=== PATIENT | female | born 1965 | race Caucasian/White ===

== ENCOUNTER 2025-04-24 09:59 | Outpatient (CLI) | payer BC, SELFPAY ==
--- NOTE | ~2025-04-24 | MMUS_ITS ---
EXAMINATION: MM diagnostic farrah RT w lynnette, US breast RT complete HISTORY: Follow-up right breast asymmetries TECHNIQUE: Additional 3-D tomosynthesis images of the right breast were performed and synthetic 2-D i mages were generated. CAD analysis was submitted and interpreted. High resolution complete right tani st ultrasound was performed. COMPARISON: Comparison to multiple prior studies sequentially, with oldest reviewed study dated 03/23. BREAST PARENCHYMAL COMPOSITION: Not dense: There are scattered areas of fibroglandular density. FINDINGS: MAMMOGRAPHIC FINDINGS: There is an obscured mass in the upper outer quadrant of the right breast, anterior third. No suspici ous calcifications or architectural distortion are identified in the right breast. There are benign c alcifications. ULTRASOUND: Limited right breast ultrasound: At 9:00, 2 cm from the nipple there are 2 adjacent cysts, largest me asuring 6 mm. At 9:00, 2 cm from the nipple there is an 8 mm cyst corresponding to the mammographic f inding. No suspicious sonographic abnormalities to suggest malignancy. IMPRESSION: 1. No evidence for malignancy in the right breast. Benign findings. 2. Routine yearly screening mammogram and regular clinical breast examination are recommended. BI-RADS Category 2: Benign finding(s). Reviewed, dictated and finalized at location A. IMPRESSION: 1. No evidence for malignancy in the right breast. Benign findings. 2. Routine yearly screening mammogram and regular clinical breast examination a re recommended. BI-RADS Category 2: Benign finding(s).
--- OUTSIDE RECORDS SUMMARY | 2025-04-24 10:16 | XMS_ITS | Clinical Summary ---
Author Organization [facility] [place] Address [address] [place] [address] Phone Care Team Providers Care Test Engineering Manager Name Role Phone Unavailable Primary Care Provider Unavailabl e Social History Tobacco Use Types Packs/Day Years Used Date Smoking Tobacco: Never Assessed Comments Unknown Sex and Gender Information Value Date Recorded Sex Assigned at Not on file Legal Sex Female 11:17 AM CDT Gender Identity Not on file Sexual Orientation Not on file Plan of Treatment Health Maintenance Due Date Last Done Comments DTAP/TDAP/TD VACCINES (1 - Tdap) 1982 HPV/Cotest (21-29) 1984 CERVICAL CANCER SCREENING 1993 HPV/Cotest (30-65) 1993 PAP SMEAR 1993 BREAST CANCER SCREENING 2003 COLORECTAL SCREENING 2008 Colorectal Cancer Screening 2008 FIT-DNA Q 3 years 2008 FIT/FOBT Q 1 year 2008 Flex Sig/CT Colonography Q 5 years 2008 ZOSTER VACCINE (1 of 2) 2013 INFLUENZA VACCINE (#1) 2025 RSV VACCINE (60+ or ) (1 - 1-dose 75+ series) 2038
--- OUTSIDE RECORDS SUMMARY | 2025-04-24 10:17 | XMS_ITS | Clinical Summary ---
Author Organization [facility] Address [address] [place] [address] Care Team Providers Care Die Cut Operator Name Role Phone Bettye Garcia MD Primary Care Provider Allergies No known active allergies Medications valACYclovir (VALTREX) 1 gram tablet TAKE 2 TABLETS BY MOUTH 2 TIMES DAILY NEEDED (PER OUTBREAK OF COLD SORE). 05/09/2023 Active Active Problems Problem Noted Date Diagnosed Date Thyroid nodule 07/26/2022 Assessment & Plan (02/12/2025 10:54 AM CDT): Reviewed neck US with patient today Nodule remain stable and slightly smaller in size Previously benign and no c/w thyroid tissue Advised monitoring as it remains stable Assessment & Plan (08/15/2023 3:05 PM ARTIFICIAL INTELLIGENCE SPECIALIST): Reviewed neck US with patient today Nodule remain stable Previously benign and no c/w thyroid tissue Advised monitoring as it remains stable Diverticulitis of sigmoid colon 04/05/2022 Assessment & Plan (04/05/2022 2:15 PM CDT): Asymptomatic now. Schedule colonoscopy for screening and evaluation. Follow up as needed otherwise. Diverticulitis of intestine w/o perforation or abscess w/o bleeding 04/01/2022 Overview (04/01/2022): Added automatically from request for surgery [id number] Assessment & Plan (04/04/2022 10:19 AM CDT): Asymptomatic now. Schedule colonoscopy for screening and evaluation. Follow up as needed otherwise. 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 0 04/05/2019 Acute pain of left knee 03/30/2019 Injury of left knee 03/30/2019 Effusion of left knee 03/30/2019 Carpal tunnel syndrome 09/27/2017 Lateral epicondylitis 09/22/2017 Arthralgia of elbow 08/08/2017 Over weight 10/18/2016 Vitamin D deficiency 10/18/2016 Assessment & Plan (02/12/2025 10:55 AM CDT): Continue on D supplements Sinusitis 11/20/2014 Overview (12/17/2016): Sinusitis Encounters Date Type Department Care Team Description 02/12/2025 10:40 AM CDT Office Visit [facility] Endocrinology Metabolism and Lipid [address], [address] [place] [address] Drew Carbajal MD Thyroid nodule (Primary Dx); Vitamin D deficiency 02/12/2025 8:55 AM CDT - 02/12/2025 11:59 PM CDT Hospital Encounter [facility] [address] [place] [id number] Thyroid nodule Discharge Disposition: Discharge to home or self care from Last 3 Months Surgical History Surgery Date Site/Laterality Comments ELBOW SURGERY 09/12/2017 - 09/11/2018 Left tendon repair CARPAL TUNNEL RELEASE 09/12/2017 - 09/11/2018 Left SECTION 09/12/1988 - 09/11/1989 TUBAL LIGATION 09/12/1995 - 09/11/1996 Bilateral COLONOSCOPY 10 years ago COLONOSCOPY 05/28/2022 FLUORO GUIDED INJECTION SHOULDER LEFT 03/18/2023 Left Medical History Medical History Date Comments MRSA (methicillin resistant Staphylococcus aureus) 2006 axilla-->treated --> resolve d MRSA (methicillin resistant staph aureus) culture positive 2 negative swabs in care everywhere-->09/22/2017 & 09/23/2017 Arthritis knee Post-menopausal 2018 Family History Medical History Relation Name Comments Stroke Father Family history of cerebrovascular accident (CVA) - (Added by TW Conv) Breast cancer Mother Cancer, breast ; Cancer Mother Family history of malignant neoplasm - (Added by TW Conv) Leukemia Mother Leukemia; Heart disease Other Family history of Heart disease; Relation Name Status Comments Father Mother Other Social History Tobacco Use Types Packs/Day Years Used Date Smoking Tobacco: Never Smokeless Tobacco: Never Tobacco Cessation:Counseling Given: Not Answered Alcohol Use Standard Drinks/Week Comments Yes 1 (1 standard drink = 0.6 oz pur e alcohol) Personal Safety Answer Date Recorded Have you ever been in or are you currently in a harmful physical or emotional relationship or is someone making you feel afraid or unsafe? Denies 03/18/2023 Comments No Sex and Gender Information Value Date Recorded Sex Assigned at Not on file Legal Sex Female 3:01 AM ARTIFICIAL INTELLIGENCE SPECIALIST Gender Identity Not on file Sexual Orientation Not on file Obstetrics History Last Filed Vital Signs Vital Sign Reading Time Taken Comments Blood Pressure 155/81 02/12/2025 10:05 AM CDT Pulse 78 02/12/2025 10:05 AM CDT Temperature 36.4 C (97.6 F) 02/12/2025 10:05 AM CDT Respiratory Rate 17 02/12/2025 10:05 AM CDT Oxygen Saturation 98% 02/12/2025 10:05 AM CDT Inhaled Oxygen Concentration - - Weight 73.8 kg (162 lb 9.6 oz) 02/12/2025 10:05 AM CDT Height 170.2 cm (5' 7.01) 02/12/2025 10:05 AM C DT Body Mass Index 25.46 02/12/2025 10:05 AM CDT Plan of Treatment Health Maintenance Due Date Last Done Comments Cervical Cancer Screening 1965 Depression Screening 1965 Hepatitis C Screening 1965 DTaP/Tdap/Td Vaccine (1 - Tdap) 1974 Hepatitis B Screening 1981 Regular Well Visit/Exam 18-64 1981 Covid-19 Vaccine (3 - 2023- season) 2024 10/19/2021, 12/17/2020 Breast Cancer Screening-Mammogram 03/23/2025 03/23/2024, 03/23/2024 Influenza Vaccine (#1) 2025 9, 10/04/2018 Colon Cancer Screening-Colonoscopy 05/28/2032 05/28/2022, 12/14/2013 Zoster Vaccine Completed 09/24/2020, 07/19/2020 Colon Cancer Screening-CT Colonography Discontinued 05/28/2022, 12/14/2013 Colon Cancer Screening-DNA Stool Discontinued 05/28/2022, 12/14/2013 Colon Cancer Screening-FIT Discontinued 05/28, 12/14/2013 Colon Cancer Screening-Sigmoidoscopy Discontinued 05/28/2022, 12/14/2013 Pneumococcal vaccine <65 Aged Out No longer eligible based on patient's age to complete this topic Procedures Procedure Name Priority Date/Time Associated Diagnosis Comments US SOFT TISSUE HEAD NECK Schedule Routine, Read Routine (OP Routine) 02/12/2025 9:51 AM CDT Thyroid nodule COLONOSCOPY 05/28/2022 9:04 AM CDT from Last 3 Months or Most Recently Relevant to Health Maintenance Results * US Head Neck Soft Tissue (02/12/2025 9:51 AM CDT) Anatomical Region Laterality Modality Head and Neck N/A Ultrasound 02/12/2025 9:50 AM CDT Impressions 02/12/2025 9:50 AM CDT 1. Slight interval decrease a of the size of the previously biopsied 0.9 cm TR5 nodule in the right mid to lower thyroid lobe, possibly due to involution of a cystic component of the nodule. 2. No new suspicious thyroid nodule requiring follow-up imaging or fine-needle aspiration by ACR TI-RADS guidelines. ACR TI-RADS recommendations FNA should only be recommended on a maximum of 2 nodules. A recommendation for follow-up should only be provided for a maximum of 4 nodules. TR5 (>=7 points) (risk of malignancy > 20%) >=1 cm: FNA 0.5-0.9 cm: follow-up US every year for 5 years <0.5 cm: no further evaluation TR4 (4-6 points) (risk of malignancy 5-20%) >=1.5 cm: FNA 1-1.4 cm: follow-up US in 1, 2, 3, and 5 years <1.0 cm: no further evaluation TR3 (3 points) (risk of malignancy 2-5%) >=2.5 cm: FNA 1.5-2.4 cm: follow-up US in 1, 3, and 5 years <1.5 cm: no further evaluation TR2 (2 points) and TR1 (0 points) (risk of malignancy < 2%) No FNA or follow-up US Electronically signed by: Rober Gibson M.D. Narrative 02/12/2025 9:50 AM CDT EXAMINATION: THYROID SONOGRAM HISTORY: 59-year-old female with thyroid nodule. Prior Biopsy: Yes, prior biopsy in September 2022 demonstrated squamous lined cyst. Patient Risk Factors: None Prior Ultrasound: Yes, prior ultrasound in August 2023. FINDINGS: The thyroid is normal in size. Size right lobe: 5.1 cm craniocaudal, 1.8 cm transverse, 1.3 cm AP. Size left lobe: 5.1 cm craniocaudal, 1.6 cm transverse, 1.2 cm AP. Size isthmus: 0.2 cm AP. Nodule 1: Unchanged spongiform nodule in the right upper thyroid gland, which requires no further follow-up by ACR TI-RADS guidelines. Nodule 2: Location: Right mid to lower Size: 0.7 cm craniocaudal x 0.7 cm transverse x 0.9 cm AP (previously 0.9 cm craniocaudal x 1.0 cm transverse x 1.0 cm AP) Maximum Size: 0.9 cm Composition: Solid/almost completely solid (2) Echogenicity: Hypoechoic (2) Shape: Taller than wide (3) Margins: Smooth (0) Echogenic foci: Punctate echogenic foci (3) Additional Echogenic foci 1: Large comet-tail artifacts (0) ACR TI-RADS total points: 10 ACR TI-RADS risk category: TR5 (7 or more points) Follow-up details: Prior biopsy: Yes, previously biopsied in September 2022 with cytology demonstrating a squamous lined cyst (differential diagnosis provided in the report includes thyroglossal duct cyst, keratinaceous inclusion cysts, squamous metaplasia of a thyroid neoplasm, or possibly branchial cleft cyst). Significant change in size (>/= 20% in two dimensions and minimal increase of 2 mm): Yes, mildly decreased in size compared to the prior examination, possibly due to involution of a cystic component of the lesion. Change in features: No. Change in ACR TI-RADS risk category: No. Multiple additional mixed solid and cystic, solid, or spongiform nodules measuring less than or equal to 5 mm in size, now which require follow-up imaging or fine-needle aspiration by ACR TI RADS guidelines. Procedure Note Rober Gibson MD - 02/12/2025 EXAMINATION: THYROID SONOGRAM HISTORY: 59-year-old female with thyroid nodule. Prior Biopsy: Yes, prior biopsy in September 2022 demonstrated squamous lined cyst. Patient Risk Factors: None Prior Ultrasound: Yes, prior ultrasound in August 2023. FINDINGS: The thyroid is normal in size. Size right lobe: 5.1 cm craniocaudal, 1.8 cm transverse, 1.3 cm AP. Size left lobe: 5.1 cm craniocaudal, 1.6 cm transverse, 1.2 cm AP. Size isthmus: 0.2 cm AP. Nodule 1: Unchanged spongiform nodule in the right upper thyroid gland, which requires no further follow-up by ACR TI-RADS guidelines. Nodule 2: Location: Right mid to lower Size: 0.7 cm craniocaudal x 0.7 cm transverse x 0.9 cm AP (previously 0.9 cm craniocaudal x 1.0 cm transverse x 1.0 cm AP) Maximum Size: 0.9 cm Composition: Solid/almost completely solid (2) Echogenicity: Hypoechoic (2) Shape: Taller than wide (3) Margins: Smooth (0) Echogenic foci: Punctate echogenic foci (3) Additional Echogenic foci 1: Large comet-tail artifacts (0) ACR TI-RADS total points: 10 ACR TI-RADS risk category: TR5 (7 or more points) Follow-up details: Prior biopsy: Yes, previously biopsied in September 2022 with cytology demonstrating a squamous lined cyst (differential diagnosis provided in the report includes thyroglossal duct cyst, keratinaceous inclusion cysts, squamous metaplasia of a thyroid neoplasm, or possibly branchial cleft cyst). Significant change in size (>/= 20% in two dimensions and minimal increase of 2 mm): Yes, mildly decreased in size compared to the prior examination, possibly due to involution of a cystic component of the lesion. Change in features: No. Change in ACR TI-RADS risk category: No. Multiple additional mixed solid and cystic, solid, or spongiform nodules measuring less than or equal to 5 mm in size, now which require follow-up imaging or fine-needle aspiration by ACR TI RADS guidelines. IMPRESSION: 1. Slight interval decrease a of the size of the previously biopsied 0.9 cm TR5 nodule in the right mid to lower thyroid lobe, possibly due to involution of a cystic component of the nodule. 2. No new suspicious thyroid nodule requiring follow-up imaging or fine-needle aspiration by ACR TI-RADS guidelines. ACR TI-RADS recommendations FNA should only be recommended on a maximum of 2 nodules. A recommendation for follow-up should only be provided for a maximum of 4 nodules. TR5 (>=7 points) (risk of malignancy > 20%) >=1 cm: FNA 0.5-0.9 cm: follow-up US every year for 5 years <0.5 cm: no further evaluation TR4 (4-6 points) (risk of malignancy 5-20%) >=1.5 cm: FNA 1-1.4 cm: follow-up US in 1, 2, 3, and 5 years <1.0 cm: no further evaluation TR3 (3 points) (risk of malignancy 2-5%) >=2.5 cm: FNA 1.5-2.4 cm: follow-up US in 1, 3, and 5 years <1.5 cm: no further evaluation TR2 (2 points) and TR1 (0 points) (risk of malignancy < 2%) No FNA or follow-up US Electronically signed by: Rober Gibson M.D. Drew Carbajal MD [facility] PROCEDURES Final Result * COLONOSCOPY (05/28/2022 9:04 AM CDT) Anatomical Region Laterality Modality Other Narrative Procedure Note Panda Larkin MD - 05/28/2022 9:04 AM CDT [facility] Patient Name: Denise Bush Procedure Date: 05/28/2022 9:04 AM Date of : 1965 Admit Type: Outpatient Age: 57 Gender: Female Attending MD: Panda Larkin M.D. Room: [facility] ENDOSCOPY ROOM 1 Note Status: Finalized Patient Profile: This is a 57 year old female. Patient had recent episode of acute diverticulitis resolved with oral antibiotics. Asymptomatic at this point. No family history of colon cancer. Procedure: Colonoscopy Indications: Last colonoscopy: 2011, Follow-up ofdiverticulitis Referring MD: Deanna Snell M.D. Providers: Panda Larkin M.D. Impression: - The entire examined colon is normal. - Diverticulosis in the sigmoid colon. - Internal hemorrhoids. - No specimens collected. Recommendation: - Repeat colonoscopy in 10 years for screening purposes. Medicines: Monitored Anesthesia Care Complications: No immediate complications. Estimated Blood Loss: Estimated blood loss: none. Procedure: Pre-Anesthesia Assessment: - Prior to the procedure, a History and Physicalwas performed, and patient medications and allergieswere reviewed. The patient's tolerance of previous anesthesia was also reviewed. The risks andbenefits of the procedure and the sedation options and risks were discussed with the patient. All questions were answered, and informed consent was obtained. Prior Anticoagulants: The patient has taken noanticoagulant or antiplatelet agents. ASA Grade Assessment: II -A patient with mild systemic disease. After reviewing the risks and benefits, the patient was deemed in satisfactory condition to undergo the procedure. The benefits, risks and alternatives of theprocedure and sedation were discussed and informed consentwas obtained. All questions were answered. Please referto the signed informed consent document in the medical record. The bowel preparation used was Miralax via split dose instruction. The bowel preparation usedwas bisacodyl tablets via split dose instruction. The scope was passed under direct vision. The Pediatric Colonoscope [id number]-H190L [id number] was introducedthrough the anus and advanced to the the cecum, identifiedby appendiceal orifice and ileocecal valve. Thequality of the bowel preparation was excellent. Bowel prepwas administered using a split dose. Findings: The perianal and digital rectal examinations were normal. The cecum appeared normal. The colon (entire examined portion) appeared normal overall. Nopolyps and no mass lesions noted. Multiple small-mouthed diverticula were found in the sigmoid colon.No inflammatory changes noted at this time. Internal hemorrhoids were found during retroflexion. The hemorrhoids were small. Electronically signed by Panda Larkin M.D. Panda Larkin M.D. 05/28/2022 11:07:14 AM Number of Addenda: 0 Note Initiated On: 05/28/2022 9:04 AM Procedure Code(s): --- Professional --- 83978, Colonoscopy, flexible; diagnostic, including collection of specimen(s) by brushing or washing, when performed (separateprocedure) Diagnosis Code(s): --- Professional --- K64.8, Other hemorrhoids K57.32, Diverticulitis of large intestine without perforation orabscess without bleeding K57.30, Diverticulosis of large intestine without perforation orabscess without bleeding CPT copyright 2020 [employer]. All rights reserved. The codes documented in this report are preliminary and upon manager pediatric reviewmay be revised to meet current compliance requirements. Recognized by the [employer] for promoting quality in endoscopy Panda Larkin MD ENDOSCOPY PROCEDURES Final Result from Last 3 Months or Most Recently Relevant to Health Maintenance Insurance [employer] CHO[employer] ACCESS CHOICE Advance Directives For more information, please contact: [phone] * Full Code (Latest Code Status on File) Date Activated Date Inactivated Comments 05/28/2022 9:00 AM 05/28/2022 3:42 PM * Full Code Date Activated Date Inactivated Comments 05/28/2022 9:00 AM 05/28/2022 9:00 AM * Full Code Date Activated Date Inactivated Comments 11/14/2019 3:50 PM 11/14/2019 9:12 PM Care Teams Die Cut Operator Relationship Specialty Start Date End Date Bettye Garcia MD PCP - General Family Medicine 01/11/23
--- OUTSIDE RECORDS SUMMARY | 2025-04-24 10:17 | XMS_ITS | Encounter Summary ---
Author Organization [facility] Address [address] [place] [address] Phone Care Team Providers Care Shredded Filler Machine Wrapper Layer Name Role Phone Jeffery Isabel MD Unavailable [phone] Cynthia Laguna APRN, ZOLTAN Primary Care Provid er Encounter Details Date Type Department Care Team (Late st Contact Info) Description 03/28/2025 Telephone [facility] Mamm[facility] [address] [place] [address] Cynthia Laguna APRN, ZOLTAN [address] [address] Social History Tobacco Use Types Packs/Day Years Used Date Smoking Tobacco: Never Smokeless Tobacco: Never Alcohol Use Standard Drinks/Week Comments Yes 1 (1 standard drink = 0.6 oz pur e alcohol) Social Connection and Isolation Panel Answer Date Recorded In a typical week, how many times do you talk on the phone with family, friends, or neighbors? More than three times a week 01/18/2024 How often do you get togethe r with friends or relatives? Twice a week 01/18/2024 How often do you attend caro center or hindu services? More than 4 times per year 01/18/2024 Do you belong to any clubs o r organizations such as mu-ism groups, unions, [employer] or athletic groups, or school groups? No 01/18/2024 How often do you attend meet ings of the clubs or organizations you belong to? Patient declined 01/18/2024 Are you , , di vorced, , never , or living with a partner? 01/18/2024 PHQ-2 Answer Date Recorded Total Score - Questions 1-9 0 03/12 Housing Stability Vital Sign Answer Bj e Recorded In the last 12 months, was t here a time when you were not able to pay the mortgage or rent on time? No 01/18/2024 In the last 12 months, how many places have you lived? 1 01/18/2024 In the last 12 months, was t here a time when you did not have a steady place to sleep or slept in a senior living (including now)? No 01/18/2024 Social Connection and Isolation Panel Answer Date Recorded In a typical week, how many times do you talk on the phone with family, friends, or neighbors? More than three times a week 03/19/2025 How often do you get togethe r with friends or relatives? Twice a week 03/19/2025 How often do you attend chur ch or hindu services? More than 4 times per year 03/19/2025 Do you belong to any clubs o r organizations such as mu-ism groups, unions, [employer] or athletic groups, or school groups? No 03/19/2025 How often do you attend meet ings of the clubs or organizations you belong to? Patient declined 03/19/2025 Are you , , di vorced, , never , or living with a partner? 03/19/2025 AUDIT-C Answer Date Recorded Q1: How often do you have a drink containing alc ohol? 2-4 times a month 03/21/2025 Q2: How many drinks containi ng alcohol do you have on a typical day when you are drinking? 1 or 2 03/21/2025 Q3: How often do you have si x or more drinks on one occasion? Never 03/21/2025 Overall Financial Resource Strain (CARDIA) Answe r Date Recorded How hard is it for you to pa y for the very basics like food, housing, medical care, and heating? Not hard at all 03/19/2025 [facility] [place] [facility] Occupat ional Health - Occupational Stress Questionnaire Answer Date Recorded Do you feel stress - tense, restless, nervous, or anxious, or unable to sleep at night because your mind is troubled all the time - these days? Not at all 03/19/2025 Exercise Vital Sign Answer Date Recorde d On average, how many days pe r week do you engage in moderate to strenuous exercise (like a brisk walk)? 5 days 03/19/2025 On average, how many minutes do you engage in exercise at this level? 60 min 03/19/2025 Hunger Vital Sign Answer Date Recorded Within the past 12 months, y ou worried that your food would run out before you got the money to buy more. Never true 03/19/20 25 Within the past 12 months, t he food you bought just didn't last and you didn't have money to get more. Never true 03/19/2025 PRAPARE - Transportation Answer Date Re corded In the past 12 months, has l ack of transportation kept you from medical appointments or from getting medications? No 04/2025 In the past 12 months, has l ack of transportation kept you from meetings, work, or from getting things needed for daily living? No 03/19/2025 Housing Stability Vital Sign Answer Bj e Recorded In the last 12 months, was t here a time when you were not able to pay the mortgage or rent on time? No 03/19/2025 In the past 12 months, how m any times have you moved where you were living? 0 03/19/2025 [facility], were you homeless or living in a senior living (including now)? No 03/19/2025 [facility] Utilities Answer Date Recorded In the past 12 months has e [employer], gas, oil, or water company threatened to shut off services in your home? No 03/19/2025 Education Answer Date Recorded What is the highest level of school you have completed or the highest degree you have received? Associate degree: occupational, technical, or vocational program 10/17/2022 Sexually Active Control Partners Comments Yes Post-menopausal Male Comments No Sex and Gender Information Value Date Recorded Sex Assigned at Not on file Legal Sex Female 7:29 PM CDT Gender Identity Not on file Sexual Orientation Not on file documented as of this encounter Miscellaneous Notes * Telephone Encounter - Estephania Kohli RMA - 03/28/2025 9:21 AM CDT Due to being booked out until the end of April and we do not have a template for the new radiologygroup coming in, I called and asked where she [place]. [place] Orders faxed and imaging pushed to them to compare. Patient is aware to call tomorrow if they do not call today to set this up. documented in this encounter Plan of Treatment Upcoming Encounters Date Type Department Care Team (Late st Contact Info) Description 05/02/2025 9:00 AM CDT [facility]ointment [facility] [address] [place] [address] Cynthia Laguna APRN, CNP #[address] [address] Discharge Disposition: Discharged to home or Selfcare 03/24/2026 9:00 AM CDT [facility] [place] [address] [place] [address] Cynthia Laguna APRN, ZOLTAN #[address] [phone] documented as of this encounter Visit Diagnoses Not on filedocumented in this encounter Additional Health Concerns Assessment Noted Time PHQ-9 Depression Total Score: 0 03/21/20 25 2:21 PM CDT documented as of this encounter Care Teams Shredded Filler Machine Wrapper Layer Relationship Specialty Start Date End Date Cynthia Laguna APRN, STRATEGY DIRECTOR #[address] [phone] PCP - General Advanced Practice Nurse 01/11/24 Jeffery Isabel MD Consulting Physician Obstetrics & Gynecology 08/29/18 documented as of this encounter
--- OUTSIDE RECORDS SUMMARY | 2025-04-24 10:17 | XMS_ITS | Clinical Summary ---
Author Organization [facility] Address [address] [facility], [address] [address] Phone Care Team Providers Care Straight Cutter Name Role Phone Jeffery Isabel MD Unavailable [phone] Cynthia Laguna APRN, LEARNING CONSULTANT Primary Care Provid er Allergies No known active allergies Medications Progesterone (PROMETRIUM) 100 MG Capsule 4 Active Multiple Vitamin (MULTIVITAMIN PO) Take by mouth. Activ e Magnesium 200 MG Tablet Take by mouth. 235mg Active VITAMIN D, CHOLECALCIFERO L, PO Take 125 mg by mouth. Active Mcdonald 3 1000 MG Capsule Take by mouth. 950 mg Active SEMAGLUTIDE PO Take by mouth. 0.2ml Active TESTOSTERONE TD 1 Dose by Other route every 90 days. Testosterone and estrogen pellets. Active valACYclovir (Valtrex) 1 GM Tablet Take 2 Tablets by mouth 2 times daily as needed (PER OUTBREAK OF COLD SORE). 28 Tablet 4 Active Syringe/Needle , Disp, (SYRINGE 3CC/23GX1) 23G X 1 3 ML MiscIndication s:Vitamin B12 deficiency USE DIRECTED 4 Each 5 Active ergocalciferol (VITAMIN D) 03672 UNIT CapsuleIndicat ions:Vitamin D deficiency Take 1 Capsule by mouth every 7 days for 12 doses. 4 Capsule 2 5 06/12/20 25 Active Cyanocobalamin (B-12 Compliance Injection) 1000 MCG/ML KitIndications :Vitamin B12 deficiency 1 mL by Injection route once a week for 4 days. 4 Kit 5 03/30/20 25 Active Problems Problem Noted Date Diagnosed Date Hyperlipidemia 10/16/2021 IFG (impaired fasting glucose) 10/16/2021 Allergic rhinitis 09/01/2020 Vitamin B12 deficiency 08/30/2019 Vitamin D deficiency 10/18/2016 Over weight 10/18/2016 Resolved Problems Problem Noted Date Diagnosed Date Resolved Date Fatigue 09/17/2016 09/01/2020 Encounters Date Type Department Care Team Description 03/28/2025 Telephone [facility] M[facility] [address] [place] [address] Cynthia Laguna APRN, CNP 03/26/2025 Telephone [facility] [place] [facility] [place] [address] Cynthia Laguna APRN, CNP 03/25/2025 9:00 AM CDT - 03/25/2025 11:59 PM CDT Hospital En[facility] Cardiology [facility] [address] [place] [address] Cynthia Laguna APRN, ZOLTAN Discharge Disposition: Discharged to home or Selfcare 03/25/2025 8:28 AM CDT - 03/25/2025 8:59 AM CDT Hospital [facility] [address] [place] [address] Cynthia Laguna APRN, CNP Discharge Disposition: Discharged to home or Selfcare 03/25/2025 Results Follow-Up [facility] [place] [address] [place] [address] Cynthia Laguna APRN, ZOLTAN CMP (COMPREHENSIVE METABOLIC PANEL), LIPID PANEL, MAGNESIUM (MG), Additional followed-up results: 5 03/25/2025 Travel 03/21/2025 2:30 PM CDT Office Visit [facility] [place] [address] [place] [address] Cynthia Laguna, CLINICAL REIMBURSEMENT SPECIALIST, LEARNING CONSULTANT Annual physical exam (Adult) (Primary Dx); Palpitations; Family hx of ischem heart dis and oth dis of the circ sys; Encounter for immunization Discharge Disposition: Discharged to home or Selfcare 03/19/2025 Travel from Last 3 Months Immunizations Immunization Administration Dates Next Due Covid-19 Vaccine, Vector-nr, Rs-ad26, Pf, 0.5 Ml (imo.im/J&J) 12/17/2020 Covid-19, Mrna, Lnp-s, PF, 1 00 mcg/0.5 mL Dose (Moderna) 10/19/2021 Influenza Vaccine, Quadrivalent, PF 08/30/2019,0 10/04/2018 TDAP Vaccine 03/21/2025 Zoster Vaccine Recombinant 09/24/2020,07/19/2020 Family History Medical History Relation Name Comments Heart Attack Father Aditya Garrett Heart Surgery Father Aditya Garrett High Cholesterol Father Aditya Garrett Breast Cancer Mother Annemarie Garrett Cancer Mother Annemarie Garrett Breast cancer Relation Name Status Comments Father Aditya Garrett Alive Mother Annemarie Garrett Social History Tobacco Use Types Packs/Day Years [...] week 01/18/2024 How often do you attend chur ch or hindu services? More than 4 times per year 01/18/2024 Do you belong to any clubs o r organizations such as islam groups, unions, fraternal or athletic groups, or school groups? No [...] place to sleep or slept in a fpc (including now)? No 01/18/2024 Social Connection and [...] any clubs o r organizations such as islam groups, unions, fraternal or athletic groups, or school groups? No [...] and heating? Not hard at all 03/19/2025 [facility] [place] [facility] Occupat [facility] - Occupational Stress [...] any time in the past 12 m [facility], were you homeless or living in a fpc (including now)? No 03/19/2025 [facility] Utilities Answer Date Recorded In the past 12 months has th e [employer], gas, oil, or water [employer] threatened to shut off services in your [...] on file Sexual Orientation Not on file Last Filed Vital Signs Vital Sign Reading Time Taken Comments Blood Pressure 120/72 03/21/2025 2:16 PM CDT Pulse 83 03/21/2025 2:16 PM CDT Temperature 36.5 C (97.7 F) 03/21/2025 2:16 PM CDT Respiratory Rate 16 03/21/2025 2:16 PM CDT Oxygen Saturation 96% 03/21/2025 2:16 PM CDT Inhaled Oxygen Concentration - - Weight 76.2 kg (168 lb) 03/21/2025 2:16 PM CDT Height 170.2 cm (5' 7) 03/21/2025 2:16 PM CDT Body Mass Index 26.31 03/21/2025 2:16 PM CDT Plan of Treatment Upcoming Encounters Date Type Department Care Team (Late st Contact Info) Description 05/02/2025 9:00 AM CDT Appointment [facility] 1 [place] [address] Cynthia Laguna APRN, LEARNING CONSULTANT #[address] [address] Discharge Disposition: Discharged to home or Selfcare 03/24/2026 9:00 AM CDT [facility] [place] [address] [place] [address] Cynthia Laguna APRN, LEARNING CONSULTANT #[address] [address] Health Maintenance Due Date Last Done Comments Cologuard 2008 Immunochemical Fecal Occult Blood 2008 Pneumococcal Immunization (50+ years) (1 of 1 - PCV) 2013 Pap Smear 09/12/2021 09/12/2018, 09/12/2016 Mammogram 03/25/2026 03/25/2025, 03/12, 09/22/2021, Additional history exists Cervical Cancer Screening (CCS) 01/09/2029 HPV/Cotest 01/09/2029 01/10/2024 Colonoscopy 05/28/2032 05/28/2022, 05/13, 05/28/2022, Additional history exists Colorectal Cancer Screening 05/28/2032 Td Immunization Every 10 Years (Adults With 1 Tdap) 03/21/2035 03/21/2025 Respiratory Syncytial Virus (RSV) Immunization (Adult) (1 - 1-dose 75+ series) 2038 Influenza Immunization Discontinued 08/30/2019, 2018 Zoster Immunization Completed 09/24/2020, SARS-COV-2 Immunization Discontinued 10/19/2021, 12/17 TdaP Immunization Discontinued 03/21/2025 Hepatitis B Immunization Discontinued Hepatitis C Virus (HCV) Screening Discontinued Human Papillomavirus (HPV) Immunization Aged Out No longer eligible based on patient's age to complete this topic Meningococcal Immunization (ACWY) Aged Out No longer eligible based on patient's age to complete this topic Rotavirus Immunization Aged Out No lo nger eligible based on patient's age to complete this topic Procedures Procedure Name Priority Date/Time Associated Diagnosis Comments EKG 12 LEAD Routine 03/25/2025 9:05 AM CDT Palpitations CBC WITH AUTO DIFFERENTIAL Routine 03/25/2025 9:01 AM CDT Annual physical exam (Adult) LIPOPROTEIN (A) Routine 03/25/2025 9:01 AM CDT Family hx of ischem heart dis and oth dis of the circ sys VITAMIN D, 25 HYDROXY TOTAL Routine 03/25/2025 9:01 AM CDT Annual physical exam (Adult) VITAMIN B12 Routine 03/25/2025 9:01 AM CDT Annual physical exam (Adult) THYROID STIMULATING HORMONE (TSH) Routine 03/25/2025 9:01 AM CDT Annual physical exam (Adult) MAGNESIUM (MG) Routine 03/25/2025 9:01 AM CDT Annual physical exam (Adult) COMPLETE BLOOD COUNT (CBC) WITH DIFF Routine 03/25/2025 9:01 AM CDT Annual physical exam (Adult) LIPID PANEL Routine 03/25/2025 9:01 AM CDT Annual physical exam (Adult) CMP (COMPREHENSIVE METABOLIC PANEL) Routine 03/25/2025 9:01 AM CDT Annual physical exam (Adult) FRANCI SCREENING BILATERAL DIGITAL W CAD W MINH Routine 03/25/2025 8:55 AM CDT Visit for screening mammogram [facility] COLONOSCOPY 05/28/2022 12:00 AM CDT from Last 3 Months or Most Recently Relevant to Health Maintenance Results * EKG 12 LEAD (03/25/2025 9:05 AM CDT) Ventricular Rate 69 BPM EXTERNAL EKG Atrial Rate 69 BPM EXTERNAL EKG P-R Interval 132 ms EXTERNAL EKG QRS Duration 82 ms EXTERNAL EKG Q-T Duration 414 ms EXTERNAL EKG QTC CALCULATION 443 ms EXTERNAL EKG P [place] 57 degrees EXTERNAL EKG R [place] 1 degrees EXTERNAL EKG T [place] 22 degrees EXTERNAL EKG 03/25/2025 9:0 5 AM CDT Impressions EXTERNAL EKG - 03/29/2025 9:20 AM CDT Normal sinus rhythm Possible Left atrial enlargement Cannot rule out Inferior infarct , age undetermined Abnormal ECG No previous ECGs available Confirmed by Milena Porter ([id number]) on 03/29/2025 9:20:14 AM Narrative Procedure Note Milena Porter MD PhD - 03/29/2025 IMPRESSION: Normal sinus rhythm Possible Left atrial enlargement Cannot rule out Inferior infarct , age undetermined Abnormal ECG No previous ECGs available Confirmed by Milena Porter ([id number]) on 03/29/2025 9:20:14 AM us Cynthia Laguna CLINICAL REIMBURSEMENT SPECIALIST, LEARNING CONSULTANT IMG ECG ORDERABLES F inal Result EXTERNAL EKG * VITAMIN D, 25 HYDROXY TOTAL (03/25/2025 9:01 AM CDT) VITAMIN D, 25 HYDROX 27.1 ng/mL 03/25/2025 11:02 AM CDT [facility] Blood Venipuncture / Unknown 03/25/2025 9:01 AM CDT 03/25/2025 10:10 AM CDT Narrative [facility] - 03/25/2025 11:02 AM CDT Published reference ranges for Vitamin D vary depending on time and place and method of testing, and on patient's age, sex, ethnicity and levels of other measured analytes such as parathormone, calcium and phosphorus. The result should be evaluated in conjunction with clinical findings and suspicions. [place] [facility] [employer] and Endocrine Clinical Practice Guidelines: Status Vitamin D levels (ng/mL) Deficient <=20 At risk of inadequacy 21-29 Sufficient 30-100 Centers of Disease Control and Prevention Guidelines: Status Vitamin D levels (ng/mL) Deficient <13 At risk of inadequacy 13-19 Sufficient 20-50 Possibly harmful >50 References: [place] [employer], 2010 Dietary reference intakes for calcium and vitamin D. [place]: The National Academies Press. Mp M, Kenan N, Beatrice BERNSTEIN, et al., Evaluation, treatment, and prevention of Vitamin D deficiency: an Endocrinology Clinical Practice Guideline. JCEM 2011 96: 7 8375-1213. Colin A, Abimael C, Bhavin D, et al., Vitamin D Status: [place], 3489-3750, [facility] data brief, no. 59, MD Jaime: National Center for Health Statistics. 2011. us Cynthia Laguna APRN, LEARNING CONSULTANT CHEMISTRY ORDERABLES Final Result [facility] [address] [place] [address] * (ABNORMAL) CBC WITH AUTO DIFFERENTIAL (03/25/2025 9:01 AM CDT) WBC 4.41 4.00 - 12.00 10(3)/mcL 03/25/2025 10:15 AM CDT [facility] RBC 4.59 3.80 - 5.30 10(6)/[facility] 03/25/2025 10:15 AM CDT [facility] HEMOGLOBIN (HGB) 14.0 12.0 - 15.8 g/dL 03/25/2025 10:15 AM CDT [facility] HEMATOCRIT (HCT) 41.7 36.0 - 47.0 % 03/25/2025 10:15 AM CDT [facility] MCV 90.8 82.0 - 96.0 fL 03/25/2025 10:15 AM CDT [facility] MCH 30.5 26.0 - 34.0 pg 03/25/2025 10:15 AM CDT [facility] MCHC 33.6 31.0 - 36.0 g/dL 03/25/2025 10:15 AM CDT [facility] PLATELET COUNT 272 140 - 440 10(3)/[facility] 03/25/2025 10:15 AM CDT [facility] RDW 12.1 11.8 - 15.5 % 03/25/2025 10:15 AM CDT [facility] MPV 10.0 9.7 - 12.4 fL 03/25/2025 10:15 AM CDT [facility] NEUTROPHILS 56.9 47.0 - 73.0 % 03/25/2025 10:15 AM CDT [facility] LYMPHOCYTES 27.7 18.0 - 42.0 % 03/25/2025 10:15 AM CDT [facility] MONOCYTES 9.5 4.0 - 12.0 % 03/25/2025 10:15 AM CDT [facility] EOSINOPHILS 4.1 0.0 - 5.0 % 03/25/2025 10:15 AM CDT [facility] BASOPHILS 1.6(H) 0.0 - 1.0 % 03/25/2025 10:15 AM CDT [facility] IMMATURE GRANULOCYTE 0.2 0.0 - 0.4 % 03/25/2025 10:15 AM CDT [facility] Comment:Immature Granulocyte s includes Metamyelocytes, Myelocytes, and Promyelocytes. ABSOLUTE NEUTROPHILS 2.51 1.60 - 7.70 10(3)/[facility] 03/25/2025 10:15 AM CDT [facility] ABSOLUTE LYMPHOCYTES 1.22(L) 1.30 - 3.20 10(3)/[facility] 03/25/2025 10:15 AM CDT [facility] ABSOLUTE MONOCYTES 0.42 0.20 - 1.00 10(3)/[facility] 03/25/2025 10:15 AM CDT [facility] ABSOLUTE EOSINOPHIL 0.18 0.00 - 0.40 10(3)/[facility] 03/25/2025 10:15 AM CDT [facility] ABSOLUTE BASOPHILS 0.07 0.00 - 0.10 10(3)/[facility] 03/25/2025 10:15 AM CDT [facility] ABSOLUTE IMMATURE GRANULOCYTE 0.01 0.00 - 0.03 10 (3) mcL. 03/25/2025 10:15 AM CDT [facility] NRBC PER 100 WBC 0 03/25/20 10:15 AM CDT [facility] Blood Venipuncture / Unknown 03/25/2025 9:01 AM CDT 03/25/2025 10:10 AM CDT Cynthia Laguna CLINICAL REIMBURSEMENT SPECIALIST, LEARNING CONSULTANT HEMATOLOGY ORDERABLE S Final Result [facility] [address] [place] [address] * VITAMIN B12 (03/25/2025 9:01 AM CDT) Pathologist [facility] VITAMIN B12 340 213 - 816 pg/mL 03/25/2025 11:02 AM CDT [facility] Blood Venipuncture / Unknown 03/25/2025 9:01 AM CDT 03/25/2025 10:10 AM CDT us Cynthia Laguna CLINICAL REIMBURSEMENT SPECIALIST, LEARNING CONSULTANT CHEMISTRY ORDERABLES Final Result [facility] [address] [place] [address] * THYROID STIMULATING HORMONE (TSH) (03/25/2025 9:01 AM CDT) TSH 2.421 0.300 - 5.000 mIU/L 03/25/2025 10:53 AM CDT [facility] Blood Venipuncture / Unknown 03/25/2025 9:01 AM CDT 03/25/2025 10:11 AM CDT Cynthia Laguna APRN, LEARNING CONSULTANT CHEMISTRY ORDERABLES Final Result Performing Organization Address [facility] Co de Phone Number [facility] [address] [place] [address] * MAGNESIUM (MG) (03/25/2025 9:01 AM CDT) Pathologist [facility] MAGNESIUM 2.1 1.6 - 2.6 mg/dL 03/25/2025 10:38 AM CDT [facility] Blood Venipuncture / Unknown 03/25/2025 9:01 AM CDT 03/25/2025 10:11 AM CDT Cynthia Laguna CLINICAL REIMBURSEMENT SPECIALIST, LEARNING CONSULTANT CHEMISTRY ORDERABLES Final Result [facility] [address] [place] [address] * (ABNORMAL) LIPOPROTEIN (A) (03/25/2025 9:01 AM CDT) LIPOPROTEIN(a) 103(H) <31 mg/dL 03/25/2025 3:45 PM CDT [facility] Blood Venipuncture / Unknown 03/25/2025 9:01 AM CDT 03/25/2025 10:11 AM CDT Narrative [facility] - 03/25/2025 3:45 PM CDT Values greater than 30 mg/dL may suggest increased risk of Coronary Heart Disease.. us Cynthia Laguna CLINICAL REIMBURSEMENT SPECIALIST, LEARNING CONSULTANT CHEMISTRY ORDERABLES Final Result [facility] [address] [place] [address], [place] * LIPID PANEL (03/25/2025 9:01 AM CDT) CHOLESTEROL 187 <200 mg/dL 03/25/2025 10:38 AM CDT [facility] TRIGLYCERIDES 72 <150 mg/dL 03/25/2025 10:38 AM CDT [facility] HDL CHOLESTEROL 59 >40 mg/dL 10:38 AM CDT [facility] LDL 114 <130 mg/dL 03/25/2025 10:38 AM CDT [facility] VLDL 14 10 - 50 mg/dL 03/25/2025 10:38 AM CDT [facility] CHOL/HDL RATIO 3.2 0.0 - 4.4 03/25/2025 10:38 AM CDT [facility] NON-HDL CHOLESTEROL 128 <130 mg/dL 03/25/2025 10:38 AM CDT [facility] IS THE PATIENT REQUIRED TO BE FASTING? Yes 03/25/2025 10:38 AM CDT [facility] HAS THE PATIENT BEEN FASTING? Yes 03/25/2025 10:38 AM CDT [facility] Blood Venipuncture / Unknown 03/25/2025 9:01 AM CDT 03/25/2025 10:11 AM CDT us Cynthia Laguna CLINICAL REIMBURSEMENT SPECIALIST, LEARNING CONSULTANT CHEMISTRY ORDERABLES Final Result Performing Organization Address City/[facility]/ZIP Co de Phone Number [facility] [address] [place] [address] * (ABNORMAL) CMP (COMPREHENSIVE METABOLIC PANEL) (03/25/2025 9:01 AM CDT) SODIUM 139 136 - 145 mmol/L 03/25/2025 10:38 AM CDT [facility] POTASSIUM 4.0 3.5 - 5.1 mmol/L 03/25/2025 10:38 AM CDT [facility] CHLORIDE 106 98 - 107 mmol/L 03/25/2025 10:38 AM CDT [facility] CO2, VENOUS 27 22 - 30 mmol/L 03/25/2025 10:38 AM CDT [facility] ANION GAP 10.0 <18.0 mmol/L 03/25/2025 10:38 AM CDT [facility] GLUCOSE 88 70 - 99 mg/dL 03/25/2025 10:38 AM CDT [facility] BUN 13 10 - 20 mg/dL 03/25/2025 10:38 AM CDT [facility] CREATININE, BLOOD 0.92 0.60 - 1.00 mg/dL 03/25/2025 10:38 AM CDT [facility] BUN/CREATININE RATIO 14 12 - 20 ratio 03/25/2025 10:38 AM CDT [facility] TOTAL PROTEIN 7.3 6.0 - 8.0 g/dL 03/25/2025 10:38 AM CDT [facility] ALBUMIN 4.3 3.5 - 5.0 g/dL 03/25/2025 10:38 AM CDT [facility] A/G RATIO 1.4 1.0 - 2.2 03/25/2025 10:38 AM CDT [facility] CALCIUM 8.6(L) 8.7 - 10.5 mg/dL 03/25/2025 10:38 AM CDT [facility] T BILI 1.1 0.2 - 1.2 mg/dL 03/25/2025 10:38 AM CDT [facility] SGOT (AST) 22 <43 U/L 03/25/2025 10:38 AM CDT [facility] SGPT (ALT) 14 <56 U/L 03/25/2025 10:38 AM CDT [facility] ALKALINE PHOSPHATASE 52 40 - 150 U/L 03/25/2025 10:38 AM CDT [facility] IS THE PATIENT REQUIRED TO BE FASTING? No 03/25/2025 10:38 AM CDT [facility] GFR, ESTIMATED >60 >=60 03/25/2025 10:38 AM CDT [facility] Comment: Creatinine Clearance is the preferred criteria for selecting drug dose adjustments in renally impaired patients. The GFR is provided as additional pertinent clinical information. GFR is reported in mL/min/1.73 sq m. Calculation based on the Chronic Kidney Disease Epidemiology Collaboration (CKD- EPI) equation refit without adjustment for race. GFR, EST. >60 >=60 025 10:38 AM CDT [facility] GFR, EST. NONAFRICAN >60 >=60 03/25/2025 10:38 AM CDT [facility] Blood Venipuncture / Unknown 03/25/2025 9:01 AM CDT 03/25/2025 10:11 AM CDT us Cynthia Laguna CLINICAL REIMBURSEMENT SPECIALIST, LEARNING CONSULTANT CHEMISTRY ORDERABLES Final Result [facility] [address] [place] [address] * FRANCI SCREENING BILATERAL DIGITAL W CAD W MINH (03/25/2025 8:55 AM CDT) Anatomical Region Laterality Modality breast Bilateral Mammography 03/25/2025 8:56 AM CDT Narrative 03/26/2025 12:37 PM CDT - FRANCI SCREENING BILATERAL DIGITAL W CAD W MINH BILATERAL DIGITAL SCREENING MAMMOGRAM 3D/2D WITH CAD WITH MEDIOLATERAL OBLIQUE CRANIOCAUDAL: 03/25/2025 The study was acquired using digital technology and interpreted from soft copy. Current study was also evaluated with ICAD version 7.2. 2D digital mammographic views, as well as 3D digital tomosynthesis were performed in the CC and MLO projections. CLINICAL: Routine screening. Patient has no complaints. No personal history of cancer. Mother with postmenopausal breast cancer. COMPARISONS: Comparison is made to exams dated: 03/23/2024 [facility], 09/22/2021, and 08/26/2020 [facility]. BREAST TISSUE:There are scattered areas of fibroglandular density. FINDINGS: There is an asymmetry in the right breast middle depth central to the nipple seen on the craniocaudal view only. No other significant masses, calcifications, or other findings are seen in either breast. IMPRESSION: INCOMPLETE: NEED ADDITIONAL IMAGING EVALUATION The asymmetry in the right breast is indeterminate. An immediate follow-up is recommended. A letter will be sent to the patient with these results. Electronically signed by: Aurelia martinez/daryl:03/25/2025 16:25:49 Body And Frame Technician(s): RT Nga(R)(M), [facility] letter sent: Additional Imaging Reading location: [facility] Mammogram BI-RADS: Category 0: Incomplete: Need Additional Imaging Evaluation Procedure Note Aurelia Wright MD - 03/26/2025 - FRANCI SCREENING BILATERAL DIGITAL W CAD W MINH BILATERAL DIGITAL SCREENING MAMMOGRAM 3D/2D WITH CAD WITH MEDIOLATERAL OBLIQUE CRANIOCAUDAL: 03/25/2025 The study was acquired using digital technology and interpreted from soft copy. Current study was also evaluated with ICAD version 7.2. 2D digital mammographic views, as well as 3D digital tomosynthesis were performed in the CC and MLO projections. CLINICAL: Routine screening. Patient has no complaints. No personal history of cancer. Mother with postmenopausal breast cancer. COMPARISONS: Comparison is made to exams dated: 03/23/2024 [facility], 09/22/2021, and 08/26/2020 [facility]. BREAST TISSUE:There are scattered areas of fibroglandular density. FINDINGS: There is an asymmetry in the right breast middle depth central to the nipple seen on the craniocaudal view only. No other significant masses, calcifications, or other findings are seen in either breast. IMPRESSION: INCOMPLETE: NEED ADDITIONAL IMAGING EVALUATION The asymmetry in the right breast is indeterminate. An immediate follow-up is recommended. A letter will be sent to the patient with these results. Electronically signed by: Aurelia martinez/daryl:03/25/2025 16:25:49 Body And Frame Technician(s): RT Nga(R)(M), [facility] letter sent: Additional Imaging Reading location: [facility] Mammogram BI-RADS: Category 0: Incomplete: Need Additional Imaging Evaluation us Cynthia Laguna APRN, ZOLTAN IMMerari MAMMO ORDERABLES Final Result * [facility] COLONOSCOPY (05/28/2022 12:00 AM CDT) 05/28/2022 us Not On File Provider PROCEDURE/MINOR SURGICAL OR DERABLES Final Result SCAN from Last 3 Months or Most Recently Relevant to Health Maintenance [place] [address] [address] [place] [address] Care Teams Straight Cutter Relationship Specialty Start Date End Date Cynthia Laguna APRN, LEARNING CONSULTANT #[address] [address] PCP - General Advanced Practice Nurse 01/11/24 Jeffery Isabel MD Consulting Physician Obstetrics & Gynecology 08/29/18
--- OUTSIDE RECORDS SUMMARY | 2025-04-24 10:17 | XMS_ITS | Encounter Summary ---
Author Organization [facility] Address [address] [place] [address] Phone Care Team Providers Care Manager Rehab Name Role Phone Deanna Snell MD Primary Care Provider + [phone] Bettye Garcia MD Primary Care Provider [phone] Encounter Details Date Type Department Care Team (Late st Contact Info) Description 07/26/2022 Telephone [facility] Endocrinology Metabolism and Lipid [address] 5[address] [place] [address] [place] [address] Sonia Rivero CMA Social History Tobacco Use Types Packs/Day Years Used Date Smoking Tobacco: Never Smokeless Tobacco: Never Alcohol Use Standard Drinks/Week Comments Yes 1 (1 standard drink = 0.6 oz pur e alcohol) Comments No Sex and Gender Information Value Date Recorded Sex Assigned at Not on file Legal 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
== END 2025-04-24 10:00 | disposition home or self-care (01) ==
LOC: ANHIMG 10:05
PROVIDERS: PCP Nurse Practitioner; Visit Provider Nurse Practitioner
DX: R92.8 Other abnormal and inconclusive findings on diagnostic imaging of breast (principal)
CPT/HCPCS: 76641; 77061; 77065; G0279